=== PATIENT | female | born 1970 | race Caucasian/White ===

== ENCOUNTER → 2018-06-14 14:40 | Outpatient (CLI) | payer OTHER, SELFPAY ==
--- NOTE | 2018-06-14 | DI.RAD.S_ITS ---
PROCEDURE: XR CHEST 2V INDICATIONS: ACUTE UPPER RESPIRATORY INFECTION,HEMOPTYSIS TECHNIQUE: 2 views of the chest were acquired. COMPARISON: None. FINDINGS: Surgical changes and devices: None. Lungs and pleura: No pleural effusions or pneumothorax. Lungs are abnormal with a mild perihilar pneumonia pattern on the right. Mediastinum: Mediastinal contours are normal. Heart size is normal. Bones and chest wall: No suspicious bony abnormalities. Soft tissues appear unremarkable. IMPRESSION: Mild right lung pneumonia, relatively subtle on the frontal projection a producing increased radiodensity over the lower thoracic spine on the lateral view. Dictated by: Frank Gastelum M.D. on 06/14/2018 at 15:25 Approved by: Frank Gastelum M.D. on 06/14/2018 at 15:27
== END ==
PROVIDERS: PCP Physician Assistant; Visit Provider Physician Assistant
DX: J18.9 Pneumonia, unspecified organism (principal); J06.9 Acute upper respiratory infection, unspecified; R04.2 Hemoptysis
CPT/HCPCS: 71046

== ENCOUNTER → 2018-11-24 11:12 | Outpatient (CLI) | payer OTHER, SELFPAY ==
--- NOTE | 2018-11-24 | DI.MG.S_ITS ---
BILATERAL DIGITAL SCREENING MAMMOGRAM 3D/2D WITH CAD: 11/24/2018 CLINICAL: Routine screening. Comparison is made to exam dated: 11/27/2013 [facility]. There are scattered fibroglandular elements in both breasts. Current study was also evaluated with a Computer Aided Detection (CAD) system. No significant masses, calcifications, or other findings are seen in either breast. There has been no significant interval change. IMPRESSION: NEGATIVE There is no mammographic evidence of malignancy. A 1 year screening mammogram is recommended. This exam was interpreted at Station ID: [id number]. NOTE: For mammograms, a report in lay terms will be sent to the patient. Approximately 15% of breast malignancies will not be visualized mammographically. In the management of a palpable breast mass, a negative mammogram must not discourage biopsy of a clinically suspicious lesion. Electronically Signed By: Kayleen shaffer/augustin:11/24/2018 12:08:07 letter sent: Normal Exam ACR BI-RADS Category 1: Negative 3341F
== END ==
PROVIDERS: PCP Physician Assistant; Visit Provider Physician Assistant
DX: Z12.31 Encounter for screening mammogram for malignant neoplasm of breast (principal)
CPT/HCPCS: 77063; 77067

== ENCOUNTER → 2020-05-30 06:52 | Outpatient (CLI) | payer OTHER, SELFPAY ==
--- NOTE | 2020-05-30 | DI.ECHO.S_ITS ---
[place] [facility] +---------+ : : [address] : : : : [id number] : : : : Phone: [phone] Echocardiogram Report + + :Name: LESLIE CORLEY Study Date: 05/30/2020 Height: 64 in : :[facility] Weight: 185 lb : : Gender: Female BSA: 1.9 m2 : :: 1970 Age: 49 yrs BP: 112/80 mmHg: :Reason For Study: HEART DZ : : Performed By: Elie Oh : :Referring: Sherri Cha : + + Interpretation Summary Normal left ventricle size with ejection fraction 55-60%. Mild hypokinesis of proximal mid posteriolateral wall. No valvular abnormality. Comparison is made with the echocardiogram of 07/19/16, wall motion abnormality has improved. Procedure: A two-dimensional transthoracic echocardiogram with color flow and Doppler was performed. The study quality was technically good. Comparison is made with the echocardiogram of 07/19/16. The patient was in normal sinus rhythm during the exam. Left Ventricle: The left ventricle is normal in size. There is normal left ventricular wall thickness. The ejection fraction is estimated to be 55-60%. There is proximal mid posteriolateral wall hypokinesis. Diastolic parameters suggest probable normal left ventricular diastolic function and normal filling pressures. Right Ventricle: The right ventricle is normal in size and function. Atria: Both atria are normal in size. There is no Doppler evidence for an atrial septal defect. Mitral Valve: The mitral valve is normal in structure and function. There is trace mitral regurgitation. Aortic Valve: The aortic valve is trileaflet. The aortic valve opens well. No aortic regurgitation is present. Tricuspid Valve: The tricuspid valve is normal in structure and function. No tricuspid regurgitation. Pulmonary artery pressures cannot be estimated because of the lack of a measurable TR jet velocity. Pulmonic Valve: The pulmonic valve is normal in structure and function. There is trace pulmonic regurgitation. Great Vessels: The aortic root is normal size. The dimensions of the ascending aorta are normal. The pulmonary artery is normal size. The IVC is of normal diameter and collapses greater than 50% with a sniff. This suggests a low right atrial pressure of 3 mm Hg. Pericardium/ Pleura There is no pericardial effusion. There is no pleural effusion. MMode/2D Measurements & Calculations LVIDd: 4.9 cm LVOT diam: 2.0 cm LVIDs: 3.3 cm Ao root diam: 2.9 cm FS: 32.8 % asc Aorta Diam: 3.2 cm EPSS: 0.91 cm Ao Arch Diam (Prox Trans): 2.6 cm IVSd: 0.86 cm LVPWd: 0.96 cm LV escalante. diameter/BSA (cm/m^2): 2.6 LV sys. diameter/BSA (cm/m^2): 1.8 LA dimension: 3.4 cm RA long axis: 4.5 cm LA A2 area: 20.8 cm2 RA area: 15.1 cm2 LA A4 area: 19.0 cm2 RA vol: 42.9 ml LA length (vol): 5.2 cm RA : 22.7 ml/m2 LA vol: 64.8 ml IVC diam: 1.2 cm LA vol index: 34.3 ml/m2 Doppler Measurements & Calculations Ao V2 max: 134.0 cm/sec LVOT Max Jeremy: 92.5 cm/sec Ao V2 mean: 98.5 cm/sec LV V1 max P.4 mmHg Ao max P.2 mmHg LV V1 VTI: 23.2 cm Ao mean P.3 mmHg JOSE FRANCISCO(I,D): 2.7 cm2 Ao V2 VTI: 26.6 cm JOSE FRANCISCO(V,D): 2.1 cm2 sev ratio: 0.87 JOSE FRANCISCO indexed to BSA (cm^2/m^2): 1.4 MV E max jeremy: 80.6 cm/sec PA V2 max: 76.6 cm/sec MV A max jeremy: 57.2 cm/sec PA V2 mean: 57.4 cm/sec MV E/A: 1.4 PA mean P.4 mmHg Med Peak E' Jeremy: 5.3 cm/sec PA pr(Accel): 8.8 mmHg E/E' med: 15.3 Lat Peak E' Jeremy: 10.2 cm/sec E/E' lat: 7.9 E/e' average: 11.6 MV dec time: 0.18 sec SV(LVOT): 71.9 ml Electronically signed by: Sherri Cha on Reading Physician:05/30/2020 11:15 AM
== END ==
PROVIDERS: PCP Physician Assistant; Referring Provider Physician Assistant; Visit Provider Registered Nurse
DX: I51.9 Heart disease, unspecified (principal); I25.10 Atherosclerotic heart disease of native coronary artery without angina pectoris; I10 Essential (primary) hypertension
CPT/HCPCS: 36415; 80048; 80061; 93306

== ENCOUNTER → 2020-05-30 07:58 | Outpatient (CLI) | payer OTHER, SELFPAY ==
[2020-05-30 09:17] LABS: BUN Creatinine Ratio 16.3 (6-22); Blood Urea Nitrogen 13 mg/dL (7-17); Calcium 9.2 mg/dL (8.4-10.2); Carbon Dioxide 29 mmol/L (22-32); Chloride 105 mmol/L (98-107); Cholesterol 137 mg/dL (140-199); Estimated Glomerular Filt Rate > 60.0 mL/min (>60); Glucose 102 mg/dL (70-100); HDL Cholesterol 51 mg/dL (40-60); HEMOLYSIS < 15 (0-50); LDL Cholesterol Calculated 66 mg/dL (<100); Potassium 4.4 mmol/L (3.4-5.1); Sodium 138 mmol/L (137-145); Triglycerides 101 mg/dL (35-150)
== END ==
PROVIDERS: PCP Physician Assistant; Referring Provider Internal Medicine Interventional Cardiology; Visit Provider Internal Medicine Interventional Cardiology
DX: I10 Essential (primary) hypertension (principal); I25.10 Atherosclerotic heart disease of native coronary artery without angina pectoris
CPT/HCPCS: 36415; 80048; 80061

== ENCOUNTER → 2021-09-26 08:38 | Outpatient (CLI) | payer OTHER, SELFPAY ==
[2021-09-26 10:00] LABS: BUN Creatinine Ratio 19.3 (6-22); Blood Urea Nitrogen 17 mg/dL (7-17); Calcium 9.3 mg/dL (8.4-10.2); Carbon Dioxide 28 mmol/L (22-32); Chloride 104 mmol/L (98-107); Cholesterol 172 mg/dL (140-199); Estimated Glomerular Filt Rate > 60.0 mL/min (>60); Glucose 108 mg/dL (70-100); HDL Cholesterol 47 mg/dL (40-60); HEMOLYSIS < 15 (0-50); LDL Cholesterol Calculated 96 mg/dL (<100); Potassium 4.5 mmol/L (3.4-5.1); Sodium 138 mmol/L (137-145); Triglycerides 144 mg/dL (35-150)
== END ==
PROVIDERS: PCP Physician Assistant; Referring Provider Internal Medicine Interventional Cardiology; Visit Provider Internal Medicine Interventional Cardiology
DX: I21.19 ST elevation (STEMI) myocardial infarction involving other coronary artery of inferior wall (principal)
CPT/HCPCS: 36415; 80048; 80061

== ENCOUNTER → 2023-08-04 | Outpatient (CLI) | payer OTHER, SELFPAY ==
--- NOTE | 2023-08-04 15:35 | DI.MG.S_ITS ---
BILATERAL DIGITAL SCREENING MAMMOGRAM 3D/2D WITH CAD: 08/04/2023 CLINICAL: Routine screening. Comparison is made to exams dated: 11/24/2018 mammogram and 11/27/2013 mammogram - [facility]. Both breasts are heterogeneously dense, which may obscure small masses (category c / 51-75% glandular tissue). Current study was also evaluated with a Computer Aided Detection (CAD) system. No significant masses, calcifications, or other findings are seen in either breast. There has been no significant interval change. IMPRESSION: NEGATIVE There is no mammographic evidence of malignancy. A 1 year screening mammogram is recommended. Based on the Tyrer Cuzick model (a risk assessment model) the patient's lifetime risk is 10.8% and her 10 year risk is 3.1%. According to the ACR, ACS, and NCCN guidelines, an annual breast MRI exam along with mammogram is recommended if the patient's lifetime risk is 20% or greater. This exam was interpreted at Station ID: [id number]. NOTE: For mammograms, a report in lay terms will be sent to the patient. Approximately 15% of breast malignancies will not be visualized mammographically. In the management of a palpable breast mass, a negative mammogram must not discourage biopsy of a clinically suspicious lesion. Electronically Signed By: Pedro munoz/augustin:08/05/2023 10:32:12 letter sent: Normal Exam ACR BI-RADS Category 1: Negative 3341F
== END ==
LOC: MAMMO 15:34
PROVIDERS: PCP Physician Assistant; Referring Provider Physician Assistant; Visit Provider Physician Assistant
DX: Z12.31 Encounter for screening mammogram for malignant neoplasm of breast (principal)
CPT/HCPCS: 77063; 77067

== ENCOUNTER → 2023-10-26 07:18 | Outpatient (CLI) | payer OTHER, SELFPAY ==
--- NOTE | 2023-10-26 07:21 | DI.NM.S_ITS ---
PROCEDURE: NM EXERCISE TREADMILL NON NUC COMPARISON: None INDICATIONS: Follow up of inferolateral myocardial infarction FINDINGS: Rest ECG sinus rhythm. Errol protocol 9:24, maximum heart rate 169 bpm (1 to 2% peak predicted), maximum blood pressure 194/102, 9.4 METS, SAVANNA -29%. Exercise ECG sinus tachycardia, no ST segment changes or arrhythmia. The patient did not complain of exercise-induced chest discomfort. IMPRESSION: Low risk study. No evidence of exercise-induced ischemia or arrhythmia. Normal hemodynamic response (doubt the maximum diastolic blood pressure reported). Very good exercise capacity. Dictated by: Erica Chan D.O. on 10/26/2023 at 17:43 Approved by: Erica Chan D.O. on 10/26/2023 at 17:46
[2023-10-26 08:06] LABS: Blood Urea Nitrogen 16 mg/dL (7-17); Calcium 9.2 mg/dL (8.4-10.2); Carbon Dioxide 27 mmol/L (22-32); Chloride 106 mmol/L (98-107); Cholesterol 173 mg/dL (140-199); Estimated Glomerular Filt Rate > 60 mL/min (>60); Glucose 109 mg/dL (70-100); HDL Cholesterol 43 mg/dL (40-60); HEMOLYSIS < 15 (0-50); LDL Cholesterol Calculated 92 mg/dL (<100); Potassium 4.4 mmol/L (3.4-5.1); Sodium 139 mmol/L (137-145); Triglycerides 190 mg/dL (35-150)
== END ==
LOC: DI 07:19
PROVIDERS: PCP Physician Assistant; Referring Provider Internal Medicine Interventional Cardiology; Visit Provider Internal Medicine Interventional Cardiology
DX: E78.2 Mixed hyperlipidemia (principal); I10 Essential (primary) hypertension; I21.19 ST elevation (STEMI) myocardial infarction involving other coronary artery of inferior wall
CPT/HCPCS: 36415; 80048; 80061; 93017

== ENCOUNTER → 2024-06-06 07:18 | Outpatient (CLI) | payer OTHER, SELFPAY ==
[2024-06-06 08:46] LABS: Cholesterol 142 mg/dL (140-199); HDL Cholesterol 43 mg/dL (40-60); LDL Cholesterol Calculated 76 mg/dL (<100); Triglycerides 113 mg/dL (35-150)
== END ==
PROVIDERS: PCP Physician Assistant; Referring Provider Internal Medicine Interventional Cardiology; Visit Provider Internal Medicine Interventional Cardiology
DX: I21.19 ST elevation (STEMI) myocardial infarction involving other coronary artery of inferior wall (principal); E78.2 Mixed hyperlipidemia
CPT/HCPCS: 36415; 80061

== ENCOUNTER 2025-08-03 22:37 | Observation (INO) | payer OTHER, SELFPAY ==
--- OUTSIDE RECORDS SUMMARY | 2025-08-03 22:39 | XMS_ITS | Encounter Summary ---
Author Organization [facility] Address [address] [place] [id number] Care Team Providers Care Program Proposals Coordinator Name Role Phone Pcp, None Selected Primary Care Provider Unavail able Reason for Visit * Reason Onset Date Comments Med Refill 07/21/2017 Encounter Details Date Type Department Care Team (Late st Contact Info) Description 07/19/[address] [facility] Cardiology [address] [phone] Sherri Lee MD [address] [place] [id number] Social History Tobacco Use Types Packs/Day Years Used Date Smoking Tobacco: Former Cigarettes Q uit: 08/08/2006 Smokeless Tobacco: Never Comments:Pack Years: 10 Comments Unknown Sex and Gender Information Value Date Recorded Sex Assigned at Not on file Legal Sex Female 7:29 PM PDT Gender Identity Not on file Sexual Orientation Not on file documented as of this encounter Miscellaneous Notes * Telephone Encounter - Shellie Johnston MA - 07/21/2017 1:32 PM PST LMV for pt to call back. Dr Rivera received msg from PCP about restarting ocp and pt is ok to restart per EL documented in this encounter Plan of Treatment Not on file documented as of this encounter Visit Diagnoses Not on filedocumented in this encounter Care Teams Program Proposals Coordinator Relationship Specialty Start Date End Date Pcp, None Selected PCP - General 11/22/24 documented as of this encounter
[2025-08-03 22:52] VITALS: BP 183/91; PULSE 77; RESP 18; TEMP 36.4; O2SAT 98; BMI 32.5
[2025-08-04] VITALS (16 sets, daily range): BP systolic 115–150; BP diastolic 63–103; PULSE 60–85; RESP 16–29; TEMP 36.9; O2SAT 88–98; BMI 32.5
--- NOTE | 2025-08-04 01:11 | ED.ABDPAIN ---
HPI - Abdominal Pain General Chief Complaint: Abdominal Pain Stated Complaint: Abdominal Px Time Seen by Provider: 08/03/25 23:53 Source: patient Mode of arrival: Ambulatory History of Present Illness HPI narrative: 54-year-old female complains of nausea and abdominal cramping after eating ice cream 7:00 p.m., was working on a puzzle, stood up, increased abdominal pain. No fall injury trauma. No history of gallbladder surgery or other prior abdominopelvic surgeries. Tried Pepto-Bismol, without relief. Related Data Home Medications ?Medication ?Instructions ?Recorded ?Confirmed MULTIVITAMIN ##0 09/24/11 lisinopril 20 mg tablet 20 mg PO QDAY ##0 07/18/16 Allergies Allergy/AdvReac Type Severity Reaction Status Date / Time No Known Drug Allergies Allergy Verified 08/03/25 22:54 Exam Narrative Exam Narrative: GENERAL: Well-developed patient, in mild distress. HEAD: Atraumatic. Normocephalic. EYES: Pupils equal round and reactive. Extraocular motions intact. No scleral icterus. No injection or drainage. ENT: Nose without bleeding, purulent drainage. Throat without erythema, tonsillar hypertrophy or exudate. Airway patent. NECK: Trachea midline. Non tender CARDIOVASCULAR: Regular rate and rhythm without murmurs, gallops, or rubs. RESPIRATORY: Clear to auscultation. Breath sounds equal bilaterally. No wheezes, rales, or rhonchi. GASTROINTESTINAL: Abdomen with some periumbilical mild tenderness without obvious ventral hernia. No guarding or rebound tenderness. Hypoactive bowel tones without rushes or tinkles. EXTREMITIES: No edema or joint tenderness. BACK: Nontender without deformity or crepitance. No flank tenderness. NEURO: AOx3. Motor functions grossly nonfocal. SKIN: No rash or erythema of visible areas Initial Vital Signs Initial Vital Signs: Vital Signs Temperature 97.5 F L 08/03/25 22:52 Pulse Rate 77 08/03/25 22:52 Respiratory Rate 18 08/03/25 22:52 Blood Pressure 183/91 H 08/03/25 22:52 Pulse Oximetry 98 08/03/25 22:52 Oxygen Delivery Method Room Air 08/03/25 22:52 Course Orders Ordered: ED Orders 08/03/25 23:53 Complete Blood Count AUTO DIFF Stat Comprehensive Metabolic Panel Stat Lipase Stat Urinalysis and Microscopic Stat 08/04/25 02:21 CT abdomen pelvis w con Stat 08/04/25 03:25 EKG-12 Lead Stat Famotidine (Famotidine 20 Mg/2 Ml Vial) 20 mg IV NOW IBETH Last Admin: 08/04/25 01:25 Dose: 20 mg Documented By: AB Hydromorphone HCl (Hydromorphone 1 Mg/Ml Syringe) 1 mg IV Q3H PRN PRN Reason: Pain, Moderate (4-6) Last Admin: 08/04/25 03:42 Dose: 1 mg Lactated Ringer's (Lactated Ringers) 1,000 mls @ 1,000 mls/hr IV BOLUS ONE Stop: 08/04/25 04:29 Last Admin: 08/04/25 04:08 Dose: 1,000 mls/hr Sodium Chloride (Normal Saline 0.9%) 1,000 mls @ 125 mls/hr IV CONT IBETH Discontinued Medications Hydromorphone HCl (Hydromorphone Hcl 0.5 Mg/0.5 Ml Syringe) 0.5 mg IV NOW ONE Stop: 08/04/25 01:18 Last Admin: 08/04/25 01:30 Dose: 0.5 mg Documented By: AB Sodium Chloride (Normal Saline 0.9%) 1,000 mls @ 1,000 mls/hr IV BOLUS ONE Stop: 08/04/25 02:16 Last Admin: 08/04/25 01:48 Dose: 1,000 mls/hr Documented By: AB Piperacillin Sod/Tazobactam (Sod 4.5 gm/ Sodium Chloride) 100 mls @ 200 mls/hr IV STAT ONE Stop: 08/04/25 03:18 Last Titration: 08/04/25 04:08 Dose: 0 mls/hr Ondansetron HCl (Ondansetron 4 Mg/2 Ml Inj) 4 mg IV NOW ONE Stop: 08/04/25 01:18 Last Admin: 08/04/25 01:25 Dose: 4 mg Documented By: AB Vital Signs Vital signs: Vital Signs - 8 hr 08/03/25 22:52 08/04/25 03:20 Temperature 97.5 F L Pulse Rate 77 76 Respiratory Rate 18 Blood Pressure 183/91 H Pulse Oximetry 98 94 Oxygen Delivery Method Room Air MDM - Abdominal Pain Lab Data Attestation: I reviewed the patient's lab results. Lab results narrative: White blood cell count 73864, hemoglobin 13.9, platelets adequate. Glucose 141. Normal renal function, electrolytes. Serum CO2 21 slight decreased. Liver functions and lipase normal. 08/04/25 01:08 08/04/25 01:40 Labs: Lab Results 08/04/25 08/04/25 Range/Units 01:08 01:40 WBC 12.9 H (4.5-11.0) X10^3/uL RBC 4.46 (4.0-5.2) X10^6/uL Hgb 13.9 (12.0-16.0) g/dL Hct 41.0 (36-46) % MCV 92.0 (80-100) fL MCH 31.3 (26-34) PG MCHC 34.0 (30-36) % RDW 13.7 (11.6-14.8) % Plt Count 237 (150-400) X10^3/uL Neut % (Auto) 76.2 H (50-75) % Lymph % (Auto) 15.6 L (25-40) % [place] % (Auto) 6.2 (3-14) % Eos % (Auto) 1.5 L (2-4) % Baso % (Auto) 0.5 (0-2) % Neut # (Auto) 9800 H (4642-5075) /uL Lymph # (Auto) 2000 (9153-0265) /uL [place] # (Auto) 800 (0-900) /uL Eos # (Auto) 200 (0-450) /uL Baso # (Auto) 100 (0-100) /uL Sodium 136 L (137-145) mmol/L Potassium 4.1 (3.4-5.1) mmol/L Chloride 104 (98-107) mmol/L Carbon Dioxide 21 L (22-32) mmol/L BUN 18 H (7-17) mg/dL Creatinine 0.73 (0.52-1.04) mg/dL Estimated GFR > 60 (>60) mL/min BUN/Creatinine Ratio 24.7 H (6-22) Glucose 141 H (70-99) mg/dL Calcium 9.3 (8.4-10.2) mg/dL Total Bilirubin 0.5 (0.2-1.3) mg/dL AST 31 (14-36) IU/L ALT 31 (<35) IU/L Alkaline Phosphatase 67 (38-126) U/L Total Protein 8.2 (6.3-8.2) g/dL Albumin 4.8 (3.5-5.0) g/dL Globulin 3.4 (1.7-4.1) g/dL Albumin/Globulin Ratio 1.4 (1.0-2.8) Lipase 120 (23-300) U/L [facility] Narrative Medical decision making narrative: 54-year-old female with abdominal pain since 7:00 p.m. yesterday after eating a screen, no prior abdominopelvic surgeries, prior colonoscopy with polypectomy. Afebrile, some central abdominal discomfort, obesity, without obvious ventral hernia. Labs pending. IV Dilaudid/Zofran. CT abdomen and pelvis imaging ordered. Lab data: White blood cell count 13942, hemoglobin 13.9, platelets adequate. Glucose 141. Normal renal function, electrolytes. Serum CO2 21 slight decreased. Liver functions and lipase normal. CT abdomen and pelvis shows acute appendicitis without evidence of perforation or abscess formation. There was mentioned of the appendicolith in the proximal portion of the appendix, with periapical fat stranding noted, and the appendix diameter 13 mm. Fat containing right adnexal lesion consistent with teratoma mentioned 3cm diameter. See tele radiology report. Will repeat pain medication Dilaudid dose, IV fluid bolus with lactated Ringer's. NKDA. IV Zosyn first dose antibiotic ordered. 0320, case discussed with surgery Dr. Dove, he will admit patient, requests bridging holding orders. Keep NPO. Requests gynecology consult regarding incidental teratoma. 0335, case also discussed with Gynecology on-call Dr. Mcclain, who can consult, consultation order also requested, regarding teratoma incidental finding, if surgical removal at time of appendectomy is desired. Critical Care Time Critical Care Time Critical Care Time: Yes Total Critical Care Time: 35 Attestation: The high probability of a clinically significant, sudden or life threatening deterioration of the [abdominopelvic, genitourinary] system(s) required my full and direct attention, intervention and personal management. The aggregate critical care time was [35] minutes. This time is in addition to time spent performing reported procedures but includes the following: [x] Data Review and interpretation [x] Patient assessment and monitoring of vital signs [x] Documentation [x] Medication orders and management Discharge Plan Departure Patient Disposition: Admitted As Inpatient Clinical Impression: Acute appendicitis, Teratoma of right ovary Admit Date/Time: 08/04/25 03:25 Admit Provider: Suhail Dove
[2025-08-04 01:25] LABS: Add Manual Diff / Slide Review NO; Hematocrit 41.0 % (36-46); Hemoglobin 13.9 g/dL (12.0-16.0); Lymphocytes Absolute Auto 2000 /uL (1100-4500); Mean Corpuscular HGB Conc 34.0 % (30-36); Mean Corpuscular Hemoglobin 31.3 PG (26-34); Mean Corpuscular Volume 92.0 fL (80-100); Platelet Count 237 X10^3/uL (150-400)
[2025-08-04] MEDS: FAMOTIDINE 20 MG/2 ML VIAL IV (01:25)
[2025-08-04] MEDS: ONDANSETRON 4 MG/2 ML INJ IV (01:25)
[2025-08-04] MEDS: SODIUM CHLORIDE 0.9% 1,000 ML 1000 ML IV (01:48)
[2025-08-04 02:05] LABS: Alanine Aminotransferase 31 IU/L (<35); Albumin 4.8 g/dL (3.5-5.0); Albumin Globulin Ratio 1.4 (1.0-2.8); Alkaline Phosphatase 67 U/L (38-126); Blood Urea Nitrogen 18 mg/dL (7-17); Calcium 9.3 mg/dL (8.4-10.2); Carbon Dioxide 21 mmol/L (22-32); Chloride 104 mmol/L (98-107); Estimated Glomerular Filt Rate > 60 mL/min (>60); Globulin 3.4 g/dL (1.7-4.1); Glucose 141 mg/dL (70-99); HEMOLYSIS 17 (0-50); Lipase 120 U/L (23-300); Potassium 4.1 mmol/L (3.4-5.1); Sodium 136 mmol/L (137-145); Total Protein 8.2 g/dL (6.3-8.2)
--- NOTE | 2025-08-04 02:21 | DI.CT.S_ITS ---
PROCEDURE: CT ABDOMEN PELVIS W CON INDICATIONS: abdom pain TECHNIQUE: After the administration of intravenous contrast, axial sections acquired from the lung bases to the pubic symphysis. Coronal and sagittal reformats were performed. For radiation dose reduction, the following was used: automated exposure control, adjustment of mA and/or kV according to patient size. COMPARISON: None. FINDINGS: Image quality: Diagnostic. Lower Chest: No significant findings. ABDOMEN: Liver: No solid mass. Gallbladder: No radiopaque gallstones or wall thickening. Biliary ducts: No biliary dilation. Pancreas: No ductal dilation. Spleen: Size is within normal limits. Adrenal Glands: No adrenal nodules. Kidneys and Ureters: No hydronephrosis. No solid mass. No complex renal cystic lesion which requires follow up. Stomach and Bowel: The appendix is inflamed, with wall thickening and distension. Periappendiceal fat stranding is present. Normal enhancement of the wall. There are a couple of appendicoliths at the base of the appendix, measuring up to 8 mm. Peritoneum: No abnormal intraperitoneal fluid. No free air. Ventral Wall: No significant ventral hernia. Abdominal Nodes: No retroperitoneal or mesenteric adenopathy by size criteria. Vessels: Aorta and inferior vena cava are normal in size. PELVIS: Pelvic Organs: Right ovarian mature teratoma measuring 2.7 cm. Bladder: No bladder wall thickening, accounting for underdistention. Pelvic Nodes: No enlarged lymph nodes. Miscellaneous: No inguinal hernias are seen. Bones: No aggressive osseous abnormality. IMPRESSION: Acute appendicitis. A couple of obstructing appendicoliths at the base measuring up to 8 mm. No evidence of perforation. Right ovarian dermoid measuring 2.7 cm. Dictated by: Pravin Isidro M.D. on 08/04/2025 at 8:25 Approved by: Pravin Isidro M.D. on 08/04/2025 at 8:27
--- NOTE | 2025-08-04 03:25 | EKG_ITS ---
[place] [id number] [address] [place] [id number] Test Date: 2025-08-04 Pat Name: Esperanza Downing Department: [facility] Room: 90D Gender: Female Ambulance Driver: LARA : 1970 Requested By: Order Number: [id number] Reading MD: Oscar Vasquez Measurements Intervals [place] Rate: 72 P: 50 WA: 156 QRS: 30 QRSD: 88 T: 50 QT: 436 QTc: 477 Interpretive Statements Normal sinus rhythm Inferior infarct , age undetermined Cannot rule out Anterior infarct , age undetermined Electronically Signed On 08-05-2025 10:40:25 PST by Oscar Vasquez
[2025-08-04] MEDS: PIPERACILLIN/TAZO 4.5 GM in SODIUM CHLORIDE 0.9% 100 ML IV (03:33)
[2025-08-04] MEDS: LACTATED RINGERS 1,000 ML 1000 ML IV (04:08)
[2025-08-04] MEDS: SODIUM CHLORIDE 0.9% 1,000 ML 125 ML IV ×2 (06:20→16:42)
--- NOTE | 2025-08-04 08:00 | P.HPOB_ITS ---
History of Present Illness History of Present Illness Reason for admission: pelvic mass and other (acute appendicitis with Gen Surg plan for urgent appendectomy. Imaging studies suggest apparent 3 cm benign teratoma containing fat in right adnexal area. Patient had irregular menses managed with OCP's until perimenopause but continued to have irregular bleeding as recent as last ) Narrative: Esperanza Downing is a 54 year old female with apparent 3 cm mature teratoma in right ovary- would like removal at time of laparoscopic appy. Given bleeding irregular at 54 yo, may benefit from endometrial sampling at time of procedure to r/o endometrial hyperplasia. Will discuss this option with Dr Braswell [facility] Comment: Patient was adopted and does not know family history Meds Home Medications and Allergies Home Medications ?Medication ?Instructions ?Recorded ?Confirmed ?Type MULTIVITAMIN ##0 09/24/11 History lisinopril 20 mg tablet 20 mg PO QDAY ##0 07/18/16 History Allergies Allergy/AdvReac Type Severity Reaction Status Date / Time No Known Drug Allergies Allergy Verified 08/03/25 22:54 Review of Systems Review of Systems ROS: Yes All systems reviewed with the patient and are negative except as otherwise documented Constitutional Constitutional: Reports as per HPI Exam Vital Signs (past 8 hours): - 08/04/25 03:20 08/04/25 03:30 08/04/25 03:32 Pulse Rate 76 74 Blood Pressure 147/75 H Pulse Oximetry 94 96 Oxygen Delivery Method Oxygen Flow Rate 08/04/25 03:32 08/04/25 04:00 08/04/25 04:00 Pulse Rate 71 72 Blood Pressure 148/85 H Pulse Oximetry 96 96 Oxygen Delivery Method Room Air Oxygen Flow Rate 08/04/25 04:30 08/04/25 04:30 08/04/25 05:00 Pulse Rate 69 Blood Pressure 143/91 H 134/77 Pulse Oximetry 97 Oxygen Delivery Method Oxygen Flow Rate 08/04/25 05:00 08/04/25 05:30 08/04/25 05:30 Pulse Rate 71 72 Blood Pressure 144/103 H Pulse Oximetry 98 98 Oxygen Delivery Method Room Air Oxygen Flow Rate 08/04/25 06:00 08/04/25 06:00 08/04/25 06:30 Pulse Rate 64 Blood Pressure 139/66 125/63 Pulse Oximetry 98 Oxygen Delivery Method Oxygen Flow Rate 08/04/25 06:30 Pulse Rate 60 Blood Pressure Pulse Oximetry 98 Oxygen Delivery Method Nasal Cannula Oxygen Flow Rate 2 Oxygen Delivery Method Nasal Cannula Oxygen Flow Rate 2 Narrative Exam Narrative: In moderate discomfort d/t appendicitis Const General: cooperative Nutritional Appearance: average body habitus Orientation: alert Eyes General: appearance normal, both eyes and all related structures Neck Neck: normal visual inspection Chest Chest: normal inspection of the chest Resp Effort & Inspection: normal respiratory effort Auscultation: clear to auscultation bilaterally Cardio Rate: regular rate Rhythm: regular rhythm Heart Sounds: S1 normal GI Inspection: normal to inspection OB/External & Speculum: deferred Skin General: no rashes or lesions noted Neuro General: patient alert Cognition: normal cognition Speech: speech normal Extrem General: normal to inspection Psych Appearance: grossly normal Objective Labs 08/04/25 01:08 08/04/25 01:40 Labs: Laboratory Results - last 24 hr 08/04/25 08/04/25 01:08 01:40 WBC 12.9 H RBC 4.46 Hgb 13.9 Hct 41.0 MCV 92.0 MCH 31.3 MCHC 34.0 RDW 13.7 Plt Count 237 Neut % (Auto) 76.2 H Lymph % (Auto) 15.6 L [place] % (Auto) 6.2 Eos % (Auto) 1.5 L Baso % (Auto) 0.5 Neut # (Auto) 9800 H Lymph # (Auto) 2000 [place] # (Auto) 800 Eos # (Auto) 200 Baso # (Auto) 100 Sodium 136 L Potassium 4.1 Chloride 104 Carbon Dioxide 21 L BUN 18 H Creatinine 0.73 Estimated GFR > 60 BUN/Creatinine Ratio 24.7 H Glucose 141 H Calcium 9.3 Total Bilirubin 0.5 AST 31 ALT 31 Alkaline Phosphatase 67 Total Protein 8.2 Albumin 4.8 Globulin 3.4 Albumin/Globulin Ratio 1.4 Lipase 120 Assessment & Plan Assessment & Plan narrative: Perimenopausal female with h/o irregular mense and incidental finding of asymptomatic apparent dermoid cyst on right ovary 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 May merit endometrial sampling given irregular perimenopausal bleeding. Risks ot right ovarian cystectomy or possible RSO include hemorrhage, infection, injury to surrounding structures Time-Based Coding :: 50 [TOTAL MINUTES] spent with patient and on the chart (including review of chart, obtaining history, exam, reviewing outside data, placing orders, documenting exam and treatment plan, and counseling patient) on [DATE].
--- NOTE | 2025-08-04 08:57 | DI.ECHO.S_ITS ---
[place] [facility]+ [facility] : : [address] : : [place] : : [id number] : : Phone: [phone] Echocardiogram Report + + :Name: LESLIE CORLEY Study Date: 08/04/2025 Height: 64 in : :[facility] ReadingLocation: Weight: 190 lb : : Gender: Female BSA: 1.9 m2 : :: 1970 Age: 54 yrs BP: 107/65 mmHg: :Reason For Study: Pre-surgical evaluation : :Ordering Physician: JU, : :MARGARET Performed By: Jane Ashley : :Referring: MARGARET DODD : + + Interpretation Summary Normal sinus rhythm. Normal LV size and wall thickness. There is mid inferolateral and mid inferior hypokinesis; otherwise normal wall motion. Ejection fraction is 60-65%. Normal chamber sizes. No significant valve abnormalities. Estimated PA systolic pressure is 32 mmHg assuming right atrial pressure of 3 mmHg. Compared to prior echocardiogram obtained May 30, 2020, no changes have occurred. Procedure: A two-dimensional transthoracic echocardiogram with color flow and Doppler was performed in limited views only to assess LV function. The heart rate ranged between 72-76 bpm during the study. Left Ventricle: The left ventricle is normal in size and wall thickness. The ejection fraction is estimated to be 50-55%. Mid inferolateral and mid- inferior hypokinesis. Grade I diastolic dysfunction with normal left atrial pressure. Right Ventricle: The right ventricle grossly appears normal in size with probable normal systolic function. Atria: The left atrial size is normal. Right atrial size is normal. Mitral Valve: The mitral valve is normal in structure and function. Aortic Valve: The aortic valve opens well. No aortic regurgitation is present. Tricuspid Valve: The tricuspid valve leaflets are thin and pliable. There is a trace or physiologic amount of tricuspid regurgitation. Pulmonic Valve: The pulmonic valve is not well visualized. Pericardium/ Pleura There is no pericardial effusion. There is no pleural effusion. MMode/2D Measurements & Calculations LVIDd: 5.4 cm IVC diam: 1.5 cm LVIDs: 3.2 cm FS: 41.6 % IVSd: 0.72 cm LVPWd: 0.88 cm LV escalante. diameter/BSA (cm/m^2): 2.8 LV sys. diameter/BSA (cm/m^2): 1.7 Doppler Measurements & Calculations Ao V2 max: 163.3 cm/sec MV E max jeremy: 96.1 cm/sec Ao V2 mean: 115.6 cm/sec MV A max jeremy: 93.2 cm/sec Ao max P.7 mmHg MV E/A: 1.0 Ao mean P.0 mmHg Med Peak E' Jeremy: 9.5 cm/sec Ao V2 VTI: 38.0 cm E/E' med: 10.1 Lat Peak E' Jeremy: 9.8 cm/sec E/E' lat: 9.8 E/e' average: 10.0 MV dec time: 0.19 sec TR max jeremy: 270.4 cm/sec TR max P.2 mmHg Electronically signed by: Leeann Moreau M.D. on Reading Physician:08/04/2025 01:06 PM
[2025-08-04 09:44] LABS: Creatine Kinase 116 U/L (30-135)
[2025-08-04 09:54] LABS: NT-proBNP (BNP-Adult 18+) 168 pg/mL (<125)
[2025-08-04 09:56] LABS: Troponin I 0.014 ng/mL (0.01-0.034)
--- NOTE | 2025-08-04 10:49 | PC.NURSE ---
Pt arrived to ACU from ED at 0950 via w/c. Pt c/o abdominal pain in RLQ that spreads to her back. Pt educated on NPO status. New IV inserted by RN. Pt oriented to room and call light. Care ongoing.
--- NOTE | 2025-08-04 11:13 | PM.CN ---
History of Present Illness Consult details Date Patient Seen: 08/04/25 Time Patient Seen: 11:13 Chief complaint: Abdominal Px Reason for consult: Pre operative evaluation Narrative: 54-year-old female with past medical history of coronary artery disease status post angioplasty to left circumflex, left obtuse marginal 2016, hypertension, hyperlipidemia former smoker currently on appropriate medical therapy with LDL goals and physically active admitted to the hospital for acute appendicitis and incidental ovarian mass. I was asked to evaluate her for preop evaluation and clearance prior to her appendectomy. Patient reports no symptoms of chest pain shortness of breath orthopnea PND. She reports no physical limitations. She works for [employer] in the office. She exercises regularly and involved in house chores and house projects. She had a stress test done in October of 2023 where she demonstrated excellent functional capacity for age with total exercise duration of 9 minutes and 24 seconds and achieved a workload of 9.4 Mets. No recent echocardiogram is available. Last echocardiogram was 2019 with ejection fraction of 55-60%. Mild hypokinesis of the posterior, posterolateral wall no valvular abnormalities with improvement of ejection fraction. Current medications include aspirin 81 mg daily magnesium 400 mg daily metoprolol succinate 25 mg daily losartan 50 mg twice daily atorvastatin 40 mg daily Meds Home Medications and Allergies Home Medications ?Medication ?Instructions ?Recorded ?Confirmed ?Type MULTIVITAMIN ##0 09/24/11 History lisinopril 20 mg tablet 20 mg PO QDAY ##0 07/18/16 History Allergies Allergy/AdvReac Type Severity Reaction Status Date / Time No Known Drug Allergies Allergy Verified 08/03/25 22:54 Review of Systems Review of Systems ROS: Yes All systems reviewed with the patient and are negative except as otherwise documented Cardiovascular Cardiovascular: Reports as per HPI Respiratory Respiratory: Reports as per HPI Gastrointestinal Comments: RLQ pain Exam Vital Signs (past 8 hours): - 08/04/25 03:20 08/04/25 03:30 08/04/25 03:32 Pulse Rate 76 74 Blood Pressure 147/75 H Pulse Oximetry 94 96 Oxygen Delivery Method Oxygen Flow Rate 08/04/25 03:32 08/04/25 04:00 08/04/25 04:00 Pulse Rate 71 72 Blood Pressure 148/85 H Pulse Oximetry 96 96 Oxygen Delivery Method Room Air Oxygen Flow Rate 08/04/25 04:30 08/04/25 04:30 08/04/25 05:00 Pulse Rate 69 Blood Pressure 143/91 H 134/77 Pulse Oximetry 97 Oxygen Delivery Method Oxygen Flow Rate 08/04/25 05:00 08/04/25 05:30 08/04/25 05:30 Pulse Rate 71 72 Blood Pressure 144/103 H Pulse Oximetry 98 98 Oxygen Delivery Method Room Air Oxygen Flow Rate 08/04/25 06:00 08/04/25 06:00 08/04/25 06:30 Pulse Rate 64 Blood Pressure 139/66 125/63 Pulse Oximetry 98 Oxygen Delivery Method Oxygen Flow Rate 08/04/25 06:30 Pulse Rate 60 Blood Pressure Pulse Oximetry 98 Oxygen Delivery Method Nasal Cannula Oxygen Flow Rate 2 Oxygen Delivery Method Nasal Cannula Oxygen Flow Rate 2 Const General: cooperative, healthy appearing and comfortable HENMT Head: normal to inspection and normocephalic Eyes General: appearance normal, both eyes and all related structures Neck Neck: normal visual inspection and full ROM Chest Chest: normal inspection of the chest and normal palpation of entire chest wall Resp Effort & Inspection: normal respiratory effort and able to speak in complete sentences Cardio Palpation: normal PMI Rate: regular rate Rhythm: regular rhythm Heart Sounds: S1 normal, S2 normal and normal, physiologic split S2 GI Palpation: tender Back/Spine/Pelvis Back: normal to inspection and back tenderness Skin General: no rashes or lesions noted Neuro General: patient alert, patient awake, patient oriented x3, gait normal, tone normal, moves all extremities, normal light touch, pain and propioception and no focal motor deficits Cognition: normal cognition Speech: speech normal Gait: normal gait Motor: muscle tone normal throughout Sensory Exam: no sensory deficits noted Extrem General: normal to inspection Psych Appearance: grossly normal Objective ECG Impression: NSR with Q wave in the inferior leads. No acute ischemic changes. No prior ekg is available for comparison. Labs 08/04/25 01:08 08/04/25 01:40 Labs: Laboratory Results - last 24 hr 08/04/25 08/04/25 08/04/25 01:08 01:40 09:25 WBC 12.9 H RBC 4.46 Hgb 13.9 Hct 41.0 MCV 92.0 MCH 31.3 MCHC 34.0 RDW 13.7 Plt Count 237 Neut % (Auto) 76.2 H Lymph % (Auto) 15.6 L [place] % (Auto) 6.2 Eos % (Auto) 1.5 L Baso % (Auto) 0.5 Neut # (Auto) 9800 H Lymph # (Auto) 2000 [facility] # (Auto) 800 Eos # (Auto) 200 Baso # (Auto) 100 Sodium 136 L Potassium 4.1 Chloride 104 Carbon Dioxide 21 L BUN 18 H Creatinine 0.73 Estimated GFR > 60 BUN/Creatinine Ratio 24.7 H Glucose 141 H Calcium 9.3 Total Bilirubin 0.5 AST 31 ALT 31 Alkaline Phosphatase 67 Total Creatine Kinase 116 Troponin I 0.014 NT-Pro-B Natriuret Pep 168 H Total Protein 8.2 Albumin 4.8 Globulin 3.4 Albumin/Globulin Ratio 1.4 Lipase 120 PFSH Medical History (Updated 08/04/25 @ 11:30 by Yunier Bean MD) Hyperlipidemia Social History household members: spouse Tobacco & Substance Use Smoking Status: Former smoker alcohol intake: current Medical History (Updated 08/04/25 @ 11:30 by Yunier Bean MD) Hyperlipidemia Social History household members: spouse Smoking Status: Former smoker alcohol intake: current Smoking Status: Former smoker Assessment & Plan Assessment and plan (1) Pre-op evaluation: Status: Acute (2) Coronary artery disease: Qualifiers: Coronary Disease-Associated Artery/Lesion type: [place] artery [place] vs. transplanted heart: [place] heart Associated angina: without angina Qualified Code(s): I25.10 - Atherosclerotic heart disease of [place] coronary artery without angina pectoris Status: Acute (3) Teratoma of right ovary: Status: Acute (4) Hyperlipidemia: Qualifiers: Hyperlipidemia type: mixed hyperlipidemia Qualified Code(s): E78.2 - Mixed hyperlipidemia Status: Acute (5) Hypertension: Qualifiers: Hypertension type: unspecified Qualified Code(s): I10 - Essential (primary) hypertension Status: Acute (6) Appendicitis: Qualifiers: Appendicitis type: acute appendicitis Acute appendicitis type: other Qualified Code(s): K35.890 - Other acute appendicitis without perforation or gangrene Status: Acute (7) Acute appendicitis: Status: Acute Plan Patient is cleared for upcoming emergent surgery. Recommendations as follows: EKG every 8 hours Troponin levels every 8 hours Close input-output charting Hemodynamic monitoring Resume aspirin, atorvastatin, metoprolol, losartan as soon as possible Please call for any emergent clinical issues or change in hemodynamic status. Limited echo prior to surgery will be helpful however not mandatory. Assessment & Plan narrative: 54 years old with History of IA 2016 with two coronary artery stents in place, history of snoring, history of hypertension, history of hyperlipidemia admitted to the hospital with acute appendicitis is scheduled for upcoming surgery. Surgery is emergent. RCRI index is 2 points with 5% risk of major cardiac events however she has EKG which demonstrates normal sinus rhythm with a Q-wave involving the inferior leads. No ischemic changes are noted. Her troponin levels are normal and BNP is 169. Clinical issues: History of coronary artery disease status post myocardial infarction status post angioplasty to left circumflex, left obtuse marginal branch of left circumflex on long-term statins and aspirin therapy. History of hypertension on medication adequately controlled History of hyperlipidemia: LDL levels are at goal. No history of systolic heart failure last ejection fraction 55-60%. Echocardiogram was performed in 2019. Physical tolerance: Patient is quite active and is able to perform all her chores and do it home projects. She reported no symptoms prior to this hospitalization. 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 Time-Based Coding :: [TOTAL MINUTES] spent with patient and on the chart (including review of chart, obtaining history, exam, reviewing outside data, placing orders, documenting exam and treatment plan, and counseling patient) on [DATE].
--- NOTE | 2025-08-04 11:49 | PM.HP.IH.1 ---
History of Present Illness History of Present Illness Date Patient Seen: 08/04/25 Time Patient Seen: 11:00 Chief complaint: Abdominal Px Narrative: 54yo F, admitted through ED with CT proven acute appendicitis without perforation. H/O PA/stents in past. Cleared for surgery by Dr. Bean, greatly appreciated. Also has Right adnexal mass, plan is evaluation by OB during lap appy. WBC 12.9, NLR 4.9. PFSH Medical History (Updated 08/04/25 @ 11:30 by Yunier Bean MD) Hyperlipidemia Social History household members: spouse Smoking Status: Former smoker alcohol intake: current Meds Home Medications and Allergies Home Medications ?Medication ?Instructions ?Recorded ?Confirmed ?Type MULTIVITAMIN ##0 09/24/11 History lisinopril 20 mg tablet 20 mg PO QDAY ##0 07/18/16 History Allergies Allergy/AdvReac Type Severity Reaction Status Date / Time No Known Drug Allergies Allergy Verified 08/03/25 22:54 Exam Vital Signs (past 8 hours): - 08/04/25 04:00 08/04/25 04:00 08/04/25 04:30 Pulse Rate 72 Blood Pressure 148/85 H 143/91 H Pulse Oximetry 96 Oxygen Delivery Method Oxygen Flow Rate 08/04/25 04:30 08/04/25 05:00 08/04/25 05:00 Pulse Rate 69 71 Blood Pressure 134/77 Pulse Oximetry 97 98 Oxygen Delivery Method Oxygen Flow Rate 08/04/25 05:30 08/04/25 05:30 08/04/25 06:00 Pulse Rate 72 Blood Pressure 144/103 H 139/66 Pulse Oximetry 98 Oxygen Delivery Method Room Air Oxygen Flow Rate 08/04/25 06:00 08/04/25 06:30 08/04/25 06:30 Pulse Rate 64 60 Blood Pressure 125/63 Pulse Oximetry 98 98 Oxygen Delivery Method Nasal Cannula Oxygen Flow Rate 2 Oxygen Delivery Method Nasal Cannula Oxygen Flow Rate 2 Narrative Exam Narrative: Const General: healthy appearing, comfortable and no acute distress Orientation: alert and oriented x3 HENMT Ears: hearing grossly normal bilaterally Eyes Visual Lerma: normal visual lerma by confrontation Conjunctivae: conjunctivae normal Sclera: sclerae normal EOM: EOM intact bilaterally Resp Effort & Inspection: normal respiratory effort and able to speak in complete sentences Cardio Rate: regular rate GI Palpation: soft, +RLQ tenderness Extrem General: no pedal edema and no calf tenderness Objective Labs 08/04/25 01:08 08/04/25 01:40 Labs: Laboratory Results - last 24 hr 08/04/25 08/04/25 08/04/25 01:08 01:40 09:25 WBC 12.9 H RBC 4.46 Hgb 13.9 Hct 41.0 MCV 92.0 MCH 31.3 MCHC 34.0 RDW 13.7 Plt Count 237 Neut % (Auto) 76.2 H Lymph % (Auto) 15.6 L [place] % (Auto) 6.2 Eos % (Auto) 1.5 L Baso % (Auto) 0.5 Neut # (Auto) 9800 H Lymph # (Auto) 2000 [place] # (Auto) 800 Eos # (Auto) 200 Baso # (Auto) 100 Sodium 136 L Potassium 4.1 Chloride 104 Carbon Dioxide 21 L BUN 18 H Creatinine 0.73 Estimated GFR > 60 BUN/Creatinine Ratio 24.7 H Glucose 141 H Calcium 9.3 Total Bilirubin 0.5 AST 31 ALT 31 Alkaline Phosphatase 67 Total Creatine Kinase 116 Troponin I 0.014 NT-Pro-B Natriuret Pep 168 H Total Protein 8.2 Albumin 4.8 Globulin 3.4 Albumin/Globulin Ratio 1.4 Lipase 120 Assessment & Plan Assessment and plan (1) Appendicitis: Qualifiers: Appendicitis type: acute appendicitis Acute appendicitis type: other Qualified Code(s): K35.890 - Other acute appendicitis without perforation or gangrene Status: Acute (2) Teratoma of right ovary: Status: Acute Plan Plan laparoscopic appendectomy, intra-op evaluation of right adnexal mass by OB. Appreciate Dr. Bean for cardiac clearance. The risks, benefits and options regarding the procedure were explained to the patient in detail. Risk discussion included but not limited to: cardiac complications, open incision, removal of part of colon, abscess, drain, infection, bleeding. The patient was encouraged to ask questions and they were answered to their satisfaction. The patient understands and is agreeable to proceed. Time-Based Coding :: [TOTAL MINUTES] spent with patient and on the chart (including review of chart, obtaining history, exam, reviewing outside data, placing orders, documenting exam and treatment plan, and counseling patient) on [DATE]. PROFEE Smalltalk Developer Document charge(s): Yes Charge Codes Initial inpatient/observation care: [id number]
[2025-08-04] MEDS: ACETAMINOPHEN IV 1,000 MG/100 ML VIAL 400 MG IV (13:51)
[2025-08-04] MEDS: LACTATED RINGERS 1,000 ML 42 ML IV ×2 (13:59→17:00)
--- NOTE | 2025-08-04 14:00 | SUR.HOLD ---
Patient to pre-op holding area in ancitipation of surgery but surgery delayed by approximately an hour due to obligation of Anesthesia provider for L&D patient. Notified patient of plan. Patient c/o increased abdominal pain 6/10; no nausea. Medicated for pain and placed on oxygen at 2 liters via nasal cannula, cardiac monitoring and frequent blood pressure checks. Call light within reach.
--- NOTE | 2025-08-04 15:11 | PM.PREOP ---
Pre-operative Note Interval Note History & Physical reviewed/Exam performed by Physician: Yes Changes to H&P: No H&P completed within 30 days and has changed as indicated here:: pt met at bedside, affirms understanding of recommendations and desires to proceed, planned INTELLIGENCE OPERATIONS SPECIALIST intraoperative consultation for R oophorectomy with opportunistic bilateral salpingectomy for incidental finding of R adnexal mass, planned laparoscopic appendectomy ASA Class (for procedural sedation): II
[2025-08-04] MEDS: PIPERACILLIN/TAZO 3.375 GM in SODIUM CHLORIDE 0.9% 100 ML IV (15:47)
--- NOTE | 2025-08-04 15:55 | SUR.OPER ---
Lithotomy on padded OR bed, head on pillow, right arm secured on padded arm boards at <90 degrees abduction, left arm tucked. Legs secured in padded yellow fins stirrups.
[2025-08-04] MEDS: BUPivacaine 0.25% W/ EPI (PF) 30 ML VIAL 60 ML INJ (16:07)
--- NOTE | 2025-08-04 16:44 | P.OP_ITS ---
Operative Date/Time/Diagnoses Date of procedure: 08/04/25 Time of procedure: 16:44 Pre-op diagnosis: Acute appendicitis, right adnexal mass Post-op diagnosis: same Procedure & Clinicians Procedure: Laparoscopic appendectomy Laparoscopic right salpingo-oophorectomy, left salpingectomy Same procedure(s) as scheduled: Yes Indications: 54yo F with acute appendicitis, right adnexal mass Surgeon: Suhail Dove Assisted?: Yes Court Messenger: Jie Braswell Anesthesia Type: General Operative Notes Findings: Non-ruptured appendicitis, retrocecal Clinical teratoma of right ovary Closure Type: primary Specimen(s): other (appendix, both tubes, right ovary) Applied: none Estimated Blood Loss (mL): 5 Blood products transfused: none Procedure in detail: After informed consent and exemplary general endotracheal anesthesia, the abdomen was prepped and draped in the usual sterile manner. Dr. Braswell was kind to join us for the right adnexal mass. The patient was placed in dorsal lithotomy position with a uterine retractor placed. The patient received appropriate antibiotics and DVT prophylaxis. Surgical time-out was performed with all team members in agreement. The pneumoperitoneum was established under direct vision using the Avila trocar cutdown technique. An 0 Vicryl was placed in the umbilical fascia in a [id number] manner. The abdominal cavity was insufflated to a pressure of 15 mmHg with carbon dioxide gas. The 5 mm 30 degree lens was inserted and no trauma secondary to trocar insertion was noted. I performed laparoscopic TAP blocks by injecting 25 cc of 0.25% Marcaine with epinephrine into the transversus muscle bilaterally. The remainder of the local was used on the skin for a total of 60. The suprapubic 5 mm and left lower quadrant 5 mm trocars were inserted under direct vision. The patient was placed in Trendelenburg [id number] position. The appendix was noted to be retrocecal and non perforated. The appendix was mobilized off of the retrocecal location. L hook cautery was used to score the peritoneal surface on either side of the appendix to aid in mobilization. It was quite adherent. The mesoappendix was windowed and the base of the appendix was controlled with large hemolock clips. The mesoappendix was controlled using the LigaSure device with adequate hemostasis. Small points of bleeding at the appendiceal mesentery were controlled with hook cautery. At this time the operation was turned over to Dr. Braswell. The right ovary and bilateral fallopian tubes were excised using the LigaSure. This will be dictated under separate cover. With this, both tubes, the right ovary and the appendix were placed into a specimen bag and removed. The right ovary was noted to contain hair and calcifications on the back table consistent with a teratoma. Everything was sent for permanent section. Hemostasis was noted to be excellent. All of the irrigation fluid had been suctioned dry. The 0 Vicryl [id number] suture was tied and there were no palpable fascial defects. The pneumoperitoneum was released. The trocars were removed. There was no bleeding noted at the trocar sites. The remainder of the local was injected into the musculature for postoperative analgesia. The skin incisions were closed using 4-0 Monocryl in a subcuticular manner. Dermabond glue was applied as a final dressing. The patient tolerated the procedure well and was extubated in the operating room and transported to the recovery area in stable condition. Complications: none Post-operative Condition: stable Disposition: PACU Plan for aftercare: PACU then palmer
--- NOTE | 2025-08-04 17:13 | PM.DS.IH.1 ---
History of Present Illness History of Present Illness Date Patient Seen: 08/04/25 Time Patient Seen: 17:13 Chief complaint: Abdominal Px Narrative: 54yo F, admitted through ED with CT proven acute appendicitis without perforation. H/O NV/stents in past. Cleared for surgery by Dr. Bean, greatly appreciated. Also has Right adnexal mass, plan is evaluation by OB during lap appy. WBC 12.9, NLR 4.9. Discharge Providers Provider Date of admission: 08/04/25 03:25 Discharge Date: 08/04/25 Primary care physician: Nicol Chavez PA-C Consults: 08/04/25 03:30 Consult to General Surgery Urgent Comment: Consulting Provider: Suhail Dove Reason for consultation: acute appendicitis Has provider been notified: Yes 08/04/25 03:36 Consult to Obstetrics Routine Comment: Consulting Provider: Adrian Hassan Reason for consultation: right teratoma, will get appy out by gen surgery Discharge provider: Suhail Dove MD Summary Hospital Course Discharge Diagnosis: Acute appendicitis Right ovarian teratoma Hospital Course: 54yo F admitted through ED overnight with acute appendicitis. CT also demonstrated right adnexal mass. Plan was for lap appy with DEVELOPMENTAL SPECIALIST. Lap appy performed 08/04/[address] Braswell. Appendix, both fallopian tubes and right ovary removed. Right ovary clinically c/w teratoma with hair and calcifications. Postop, she tolerated diet and was ready for discharge. Status at Discharge Cognitive/behavioral status at discharge: oriented Functional status at discharge: independent ambulation Overall status at discharge: patient is progressing back to baseline Time Spent with Patient Time spent: Greater than 30 minutes Exam Vital Signs (past 8 hours): - 08/04/25 13:44 08/04/25 14:11 08/04/25 14:48 Temperature 98.5 F Pulse Rate 79 69 67 Respiratory Rate 20 16 17 Blood Pressure 115/86 130/63 127/67 Pulse Oximetry 95 98 98 Oxygen Delivery Method Room Air Nasal Cannula Nasal Cannula Oxygen Flow Rate 3 3 08/04/25 16:47 08/04/25 16:54 08/04/25 17:00 Temperature 98.5 F Pulse Rate 85 84 77 Respiratory Rate 21 20 29 H Blood Pressure 144/91 H 145/89 H 150/73 H Pulse Oximetry 88 L 93 94 Oxygen Delivery Method Room Air Nasal Cannula Nasal Cannula Oxygen Flow Rate 3 3 08/04/25 17:03 Temperature Pulse Rate 79 Respiratory Rate 26 H Blood Pressure 139/72 Pulse Oximetry 93 Oxygen Delivery Method Nasal Cannula Oxygen Flow Rate 3 Oxygen Delivery Method Nasal Cannula Oxygen Flow Rate 3 Narrative Exam Narrative: Const General: comfortable and no acute distress Orientation: alert and oriented x3 Resp Effort & Inspection: normal respiratory effort and able to speak in complete sentences Cardio Rate: regular rate GI Palpation: soft, incisions CDI, pain appropriate for postop Extrem General: no pedal edema and no calf tenderness Objective Labs 08/04/25 01:08 08/04/25 01:40 Labs: Laboratory Results - last 24 hr 08/04/25 08/04/25 08/04/25 01:08 01:40 09:25 WBC 12.9 H RBC 4.46 Hgb 13.9 Hct 41.0 MCV 92.0 MCH 31.3 MCHC 34.0 RDW 13.7 Plt Count 237 Neut % (Auto) 76.2 H Lymph % (Auto) 15.6 L [place] % (Auto) 6.2 Eos % (Auto) 1.5 L Baso % (Auto) 0.5 Neut # (Auto) 9800 H Lymph # (Auto) 2000 [place] # (Auto) 800 Eos # (Auto) 200 Baso # (Auto) 100 Sodium 136 L Potassium 4.1 Chloride 104 Carbon Dioxide 21 L BUN 18 H Creatinine 0.73 Estimated GFR > 60 BUN/Creatinine Ratio 24.7 H Glucose 141 H Calcium 9.3 Total Bilirubin 0.5 AST 31 ALT 31 Alkaline Phosphatase 67 Total Creatine Kinase 116 Troponin I 0.014 NT-Pro-B Natriuret Pep 168 H Total Protein 8.2 Albumin 4.8 Globulin 3.4 Albumin/Globulin Ratio 1.4 Lipase 120 PFSH Medical History (Updated 08/04/25 @ 11:30 by Yunier Bean MD) Hyperlipidemia Social History household members: spouse Smoking Status: Former smoker alcohol intake: current Discharge Assessment & Plan Assessment and Plan Assessment: Acute appendicitis, right ovarian teratoma s/p laparoscopic removal Plan of Treatment: Home today F/U in General Surgery and DEVELOPMENTAL SPECIALIST clinic See d/c instructions Discharge Plan Discharge Plan Patient Disposition: Home Provider Discharge Comment: Shower OK, no swimming for 2 weeks Diet as tolerated Stitches dissolving, skin glue will work itself off like a scab in 1-2 weeks Take pain meds as needed, most patients don't need the narcotic prescription Expect more pain tomorrow when the numbing medication wears off Make office appointments to see myself and Dr. Braswell around 2 weeks after surgery Your right ovary looked like a teratoma, Dr. Braswell's office will notify you when results return in 1-2 weeks Miralax for constipation Discharge orders & Medications Prescriptions: New ondansetron 4 mg tablet,disintegrating 4 mg PO Q8H PRN (Reason: nausea and vomiting) Qty: 7 0RF hydrocodone-acetaminophen 5-325 mg tablet 1 tab PO Q4H PRN (Reason: pain) Qty: 14 0RF Continued MULTIVITAMIN Qty: 0 losartan 50 mg tablet 50 mg PO BID atorvastatin 40 mg tablet 40 mg PO DAILY metoprolol succinate 25 mg tablet extended release 24 hr 25 mg PO BID Follow up/Referrals: Nicol Chavez PA-C [Primary Care Provider, Internal Medicine] Jie Braswell MD [Physician, IRRIGATION INSTALLATION SPECIALIST] Suhail Dove MD [Physician, General Surgery] Diet/Activity/Treatments Diet: Diet as Tolerated Skin/Wound/Dressing Care Report to your healthcare provider any signs of infection, such as:: chills, fever, night sweats, increased pain, unusual drainage and unusual redness Visit Report/Discharge Packet Instructions: DI for an Appendectomy, DI for Laparoscopy, DI for Prescription Opioid Use Stand Alone Forms: [employer], Patient Portal/API, Stroke Signs & Symptoms, Influenza Vaccine Info, Notice of Privacy Practices, Inpatient vs Outpatient, Pneumococcal Vaccine Info, Pt. Rights & Responsibilities Discharge Data Primary Care Provider: Nicol Chavez PROFABIMAEL Charge Codes Discharge inpatient/observation: [id number]
--- NOTE | 2025-08-04 18:04 | PM.GYNOP.1 ---
Operative Date/Time/Diagnoses Date of procedure: 08/04/25 Time of procedure: 16:00 Pre-op diagnosis: 1) appendicitis, non-ruptured 2) R ovarian cyst, suspected teratoma 3) opportunistic bilateral salpingectomy Post-op diagnosis: same Procedure & Clinicians Procedure: Procedures Operation Date: 08/04/25 10:00 Actual Procedure Side Surgeon p Laparoscopic Appendectomy, Right Salpingo-oopherectomy, Left Salpingectomy Not Applicable Suhail Dove MD Indications: see HPI Surgeon: Jie Braswell [employer] General Sales Manager: Suhail Dove Anesthesia Type: General Operative Notes Findings: enlarged R ovary normal appearing L fallopian tube and ovary normal appearing R fallopian tube Specimen(s): right tube and left tube & ovary Applied: none Estimated blood loss (mL): 2 Procedure in detail: See operative dictation from Dr. Dove. Following successful and uncomplicated appendectomy attention was then turned to gynecologic portion of the case. The uterus was elevated within the pelvis using atraumatic sponge stick placed with the vagina. The anatomy was easily visualized as above. The R infundibulpelvic ligament was elevated, clamped, ligated and transected using the power seal. The L fallopian tube was dissected way from the mesosalpinx using the powerseal after which the fallopian tube was amputated at the level of the cornua. The R ovarian uterine artery was similarly clamped and transected using the power seal. Both ovary and L fallopian tube were placed with the cul de sac and attention was turned to the L adnexae. The L fallopian tube was grasped, elevated and dissected away from mesosalpinx in identical fashion followed by amputation at the level of the cornua. The large endocatch bag was introduced via the infraumbilical trocar and all specimens (R fallopian tube, L fallopian tube, R ovary, appendix) were placed within the bag. The bag was closed and removed under direct visualization. Insufflation was paused and the bag was brought to the level of the incision. Surgical pathology specimens were passed off the field for permanent study without spill. All wound beds were once again inspected and noted to be hemostatic. Remainder of case as per Dr. Dove' dictation. Complications: none Post-operative Condition: stable Disposition: PACU Plan for aftercare: per Dr. Dove/acute general surgery
--- NOTE | 2025-08-04 18:14 | PC.NURSE ---
D/c packet reviewed with pt and spouse. Educated pt on use of incentive spirometer and its purpose. Discussed timing of next ibuprofen dose, since pt had toradol in PACU. Pt verbalized that she will be picking up her prescriptions from [facility] tomorrow morning since the pharmacy is currently closed. Pt exited via w/c with MIXING AND MOLDING MACHINE OPERATOR and spouse to private vehicle.
== END 2025-08-04 18:10 | disposition home or self-care (01) ==
LOC: ED 23:53 → AC 08-04 03:29
PROVIDERS: Admitting Provider Surgery; Emergency Provider Emergency Medicine; PCP Physician Assistant; Referring Provider Emergency Medicine; Visit Provider Surgery
PROC: 0DTJ4ZZ Resection of Appendix, Percutaneous Endoscopic Approach (ICD-10-PCS; CPT 44970; principal; 2025-08-04 10:00)
DX: K35.80 Unspecified acute appendicitis (principal); D27.0 Benign neoplasm of right ovary; I25.2 Old myocardial infarction
CPT/HCPCS: 44979; 58661; 36415; 74177; 80053; 82550; 83690; 83880; 84484; 85025; 93005; 93307; 96365; 96375; 99284; 99285; G0378; J0131; J1100; J1171; J1885; J2405; J2543; J2704; J3010; J7030; J7050; J7120; Q9967